=== PATIENT | male | born 1935 | race Caucasian/White ===

== ENCOUNTER 2022-09-29 19:59 | Emergency (ER) | payer MEDICARE, OTHER, SELFPAY ==
--- NOTE | ~2022-09-29 | CT_ITS ---
EXAMINATION: NONCONTRAST HEAD CT NONCONTRAST CERVICAL SPINE CT INDICATION INFORMATION: Fall. Head injury. EtOH. COMPARISON: None TECHNIQUE: Separate noncontrast CT examinations of the head and cervical spine were performed. Coronal and sagittal images were created for each examination at the technologist workstation. This CT examination was performed using dose optimization techniques as appropriate, variously including the following: *Automated exposure control *Adjustment of mA and/or kV according to patient size (this includes techniques or standardized protocols for targeted exams where dose is matched to indication/reason for exam; i.e. extremities or head) *Use of iterative reconstruction technique DLP: 1137 mGy-cm FINDINGS: Head: There is no evidence of acute intracranial hemorrhage or territorial infarction. No abnormal mass effect or midline shift is seen. Morales to white matter differentiation is well preserved. No extra-axial fluid collections are identified. No hydrocephalus. Proportional prominence of the ventricles and sulcal spaces is consistent with mild volume loss. Patchy periventricular and deep white matter hypoattenuation is consistent with mild small vessel ischemic changes. Significant bandaging in place limiting evaluation of the soft tissues. There is likely soft tissue laceration along the high frontal region with gas in the soft tissues. There is no calvarial fracture. The mastoid air cells and visualized portions of the paranasal sinuses are well aerated. Cervical spine: There is anatomic alignment of the vertebral bodies and posterior elements. The atlantoaxial and atlantooccipital articulations are intact. Vertebral body heights are maintained. There is multilevel intervertebral disc space narrowing with endplate osteophyte formation and facet arthropathy. No evidence of acute fracture. No prevertebral soft tissue swelling. Mild emphysema noted at the lung apices. The thyroid gland is unremarkable. CT/CT cervical spine wo IV con IMPRESSION: 1. No acute intracranial finding. 2. No acute fracture or malalignment of the cervical spine. Moderate degenerative changes.
[2022-09-29 20:13] VITALS: BP 124/78; BP 151/50; PULSE 60; PULSE 67; RESP 18; TEMP 36.5; O2SAT 98; O2SAT 99; BMI 26.5
--- NOTE | 2022-09-29 22:46 | ED_ITS ---
HPI - Head Injury General Chief complaint: Head Injury Stated complaint: FALL Time Seen by Provider: 09/29/22 20:16 Source: patient and family ( ) Mode of arrival: EMS Limitations: other (The patient is very hard of hearing, was able to communicate with the patient) History of Present Illness HPI Narrative: 87-year-old male who presents emergency department for evaluation of scalp laceration secondary to fall. The patient was about to sit down in the dining room to eat dinner. He was using his walker. He states that he turned, lost his balance and fell. The was not in the room but did find the patient on the floor. She believes that he may have struck his head on the corner of the table but she is uncertain. He did not have any loss of consciousness. The patient had a large laceration to his scalp which was actively bleeding. This was wrapped with gauze and Kerlix and he was transported to the emergency department by the paramedics. The patient states he is having pain in his left neck any points to his left trapezius muscle. He denied headache, nausea, vomiting, numbness or weakness. According to his , he does have issues with his balance but has not been ill recently. The patient's medication list was reviewed and he is on aspirin. Related Data Allergies Allergy/AdvReac Type Severity Reaction Status Date / Time tetracycline [TETRACYCLINE] AdvReac Unknown NAUSEA & Unverified 03/20/20 17:23 VOMITING Review of Systems Review of Systems: Yes all other systems are reviewed and are negative [facility] Past Medical History [facility] Narrative: Past medical history: GI bleed, cardiac dysrhythmia, hearing impairment, prosthetic heart valve, anemia, hypertension, stroke, visual impairment. Social history: He lives with his . He denies tobacco, alcohol and drug use. Social History Social History Advance Directives: No Advance Directives Information Provided: No Physical Exam Vital Signs: Vital Signs: Last Vital Signs Temp 97.7 F 09/29/22 20:13 Pulse 67 09/29/22 20:13 Resp 18 09/29/22 20:13 BP 151/50 H 09/29/22 20:13 Pulse Ox 99 09/29/22 20:13 O2 Del Method Room Air 09/29/22 20:13 BMI result Body Mass Index 26.5 Const: Other: Awake, alert, male patient, patient is very hard of hearing, he has a pressure dressing on his scalp which she has soaked through with blood. HEENT: Head: Yes normal to inspection, Yes normocephalic and Yes atraumatic Ears: external ears normal General nose exam: Normal external nose present Face and sinus: Yes normal facial exam Mouth: Normal oral and palatal mucosa present Throat: Yes posterior oropharynx normal Eyes: General: appearance normal, both eyes and all related structures Pupils: Equal, round and reactive pupils present Neck: Neck: Yes normal visual inspection, Yes no lymphadenopathy, Yes trachea midline and Yes supple Chest: Chest palpation & inspection: normal inspection of the chest and normal palpation of entire chest wall Resp: Effort & Inspection: normal respiratory effort and able to speak in complete sentences Auscultation: clear to auscultation bilaterally Cardio: Rate: regular rate Rhythm: regular rhythm Heart sounds: S1 normal heart sound present, S2 normal heart sound present and no murmurs GI: Inspection: Yes normal to inspection Palpation (GI): Soft to palpation, nontender and no guarding Auscultation: normal bowel sounds : General: Yes no CVA tenderness Back/Spine/Pelvis: Back: no CVA tenderness Skin: General skin exam: no rashes or lesions noted Neuro: Cranial nerves: Yes CN's II-XII intact bilaterally and Yes Equal, round and reactive pupils present Cognition (Neuro): normal cognition Motor exam (neuro): 5/5 motor strength present throughout Extrem: General: Yes normal to inspection Psych: Appearance: grossly normal Speech and movement: Normal speech and movement present Affect: normal affect Attitude: cooperative Medical Decision Making Medical Decision Making [facility] Narrative: 87-year-old male who presents emergency department for evaluation of fall secondary to loss of balance with head injury. The fall was unwitnessed but the patient's was at home and found the patient immediately after the fall. She believes that he may have struck his head on the corner of a table. The patient did have a large scalp laceration which was actively bleeding. Patient had a CT scan of the head and cervical spine there was no acute fracture or blee d of the brain noted and no cervical fractures noted by the radiologist. The patient's laceration was approximately 10 cm in length. There were 3 active skin bleeders, 2 hour was able to tie off, the 3rd was deep, was unable tied off and I did cauterize it. The wound was closed in layer worse. The muscular layer was closed with 3.0 Vicryl sutures and the skin layer was closed with 16 robin. The patient tolerated the procedure well. A pressure dressing was applied to his scalp. I did give the patient and his verbal and printed instructions and the patient was discharged home. Procedures Procedure Narrative Procedure Narrative: Complex scalp laceration repair, 10 cm in length The patient had a deep complex scalp laceration which was full skin thickness into the muscle layer. The wound is explored there are no foreign bodies found in the wound the best my ability. The wound was prepped with Betadine. The wound was actively bleeding. There were 3 skin bleeders in the wound. Two of the skin bleeders were isolated and tied off with 3.0 Vicryl sutures. The intermuscular layer of the scalp was closed with 3.0 Vicryl sutures times 10. The skin layer was then closed with 16 robin. The patient tolerated the procedure well. A pressure dressing was applied by nursing. Discharge Plan Discharge Clinical Impression: Complex laceration of scalp Closed head injury Qualifiers: Encounter type: initial encounter Qualified Code(s): S09.90XA - Unspecified injury of head, initial encounter Fall Qualifiers: Encounter type: initial encounter Qualified Code(s): W19.XXXA - Unspecified fall, initial encounter Patient Disposition: Home, Self-Care Instructions: Head Injury (ED), Laceration (ED) Additional Instructions: The CT scan of your head revealed no skull fracture/broken bones and no bleeding in the brain which is reassuring. The CT scan of your neck/cervical spine revealed no fracture/broken bones. The laceration of your scalp was deep and complicated. You had 3 the bleeding vessels. I was able to tie off to these vessels with sutures, the 3rd vessel was cauterized with electricity and silver nitrate stick. The scalp was closed in 2 layers, inner layer was closed with 3.0 Vicryl sutures times 10 sutures. The outer layer was closed with 16 robin. A pressure dressing was applied to your scalp, leave this pressure dressing on for 24 hours. If you bleed through the pressure dressing them return to the emergency department for a re-evaluation. Stop your aspirin for 24 hours. Follow-up with your doctor in 2 days. Please return to the emergency department if your symptoms get worse or if you develop any symptoms that are concerning to you.
[2022-09-29 23:17] VITALS: BP 138/42; PULSE 84; RESP 20; TEMP 36.4; O2SAT 95
--- NOTE | 2022-09-29 23:22 | PC.NURSE ---
late entry- pt arrived in c collar. bleeding not controlled at this time. dr florez made aware of pt. await orders
--- NOTE | 2022-09-29 23:23 | PC.NURSE ---
late entry- pt at bedside at this time. this rn and assistant professor of education assisted pt in standing at bedside to use bedside urinal. pt sitting on edge of bed while this rn and assistant professor of education clean blood off pt. pt shirt removed at this time. pt provided with warm blankets at this time
--- NOTE | 2022-09-29 23:25 | PC.NURSE ---
late entry- this rn and manager [employer] at bedside for suturing and staple procedure. suction needed intermittently by dr florez to visualize wound. 10 sutures and 16 robin placed. this rn provided pressure wrap per dr florez order. pt reports being able to move neck still, able to move mouth. pt denies any difficulty or impairment with breathing. md visualized dressing at this time. pt assisted into wheelchair at discharge
--- NOTE | 2022-09-29 23:27 | PC.NURSE ---
wheel chair utilized at discharge. iv removed at this time. pt able to stand and pivot with standby assist into wheelchair. pt and pt provided with discharge packet and extra supplies for dressing. pt and verbalize understanding of discharge plan
[2022-09-29] MEDS: Lidocaine HCl 2% PF/Epi 1:200 20 ML VIAL INFILTRATI (23:30)
== END 2022-09-29 23:30 | disposition home or self-care (01) ==
PROVIDERS: Emergency Provider Emergency Medicine Emergency Medical Services; PCP Family Medicine
DX: S01.01XA Laceration without foreign body of scalp, initial encounter (principal); R51.9 Headache, unspecified; M54.2 Cervicalgia; W01.10XA Fall on same level from slipping, tripping and stumbling with subsequent striking against unspecified object, initial encounter; Y93.9 Activity, unspecified; Y92.9 Unspecified place or not applicable; Y99.9 Unspecified external cause status
CPT/HCPCS: 12034; 70450; 72125; 99284